=== PATIENT | female | born 2000 | race Caucasian/White ===

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

== ENCOUNTER 2022-06-13 19:27 | Emergency (ER) | payer BC, SELFPAY ==
--- NOTE | ~2022-06-13 | XR_ITS ---
EXAMINATION: XR chest 2V Exam Date/Time: 06/13/2022 20:45 CDT HISTORY: chest pain post covid Comparison: None. RESULT: Lines, tubes, and devices: None. Lungs and pleura: Clear. Cardiomediastinal silhouette: Normal. Other: No acute osseous or upper abdominal finding. Scoliosis. IMPRESSION: No acute cardiopulmonary process. Reviewed, dictated and finalized at location K.
[2022-06-13 20:12] VITALS: BP 112/92; PULSE 108; RESP 18; TEMP 36.8; O2SAT 100
--- NOTE | 2022-06-13 20:17 | ECG_ITS ---
Measurements Intervals [place] Rate: 86 P: 83 AR: 128 QRS: 80 QRSD: 84 T: 58 QT: 350 QTc: 421 Interpretive Statements SINUS RHYTHM INCOMPLETE RIGHT BUNDLE BRANCH BLOCK BORDERLINE ECG NO PREVIOUS ECG AVAILABLE FOR COMPARISON Electronically Signed On 06-14-2022 6:48:51 CDT by Yevgeniy De Paz D.O.
[2022-06-13 21:12] LABS: Basophils Absolute Auto 0.1 K/mm3 (0.0-0.1); Basophils Percent Auto 0.6 % (0.2-1.2); Eosinophils Absolute Auto 0.1 K/mm3 (0-0.3); Eosinophils Percent Auto 1.2 % (0-4.4); Hemoglobin 11.6 g/dL (12.0-15.0); Immature Granulocyte Absolute 0.02 K/mm3 (0.00-0.031); Immature Granulocyte Percent A 0.2 % (0-0.5); Lymphocytes Absolute Auto 4.08 K/mm3 (0.9-3.2); Lymphocytes Percent Auto 35.8 % (18.3-44.2); Mean Corpuscular HGB Conc 32.2 g/dl (32-36); Mean Corpuscular Hemoglobin 30.1 pg (26-34); Mean Corpuscular Volume 93.5 fl (80-100); Mean Platelet Volume 9.5 fl (7.4-10.4); Monocytes Absolute Auto 0.6 K/mm3 (0.1-0.6); Monocytes Percent Auto 5.6 % (2.6-8.5); Neutrophils Absolute Auto 6.4 K/mm3 (1.3-6.7); Neutrophils Percent Auto 56.6 % (45.5-73.1); Platelet Count Result 426 k/mm3 (150-375); Red Blood Count 3.85 M/mm3 (4.2-5.4); White Blood Count 11.4 K/mm3 (4.5-10.0)
[2022-06-13 21:23] LABS: Alanine Aminotransferase 16 U/L (6-35); Albumin Level 4.4 g/dL (3.7-5.6); Alkaline Phosphatase 63 U/L (45-116); Anion Gap 9 mmol/L (8-16); Aspartate Amino Transferase 23 U/L (14-36); Bilirubin,Total 0.2 mg/dL (0.2-1.3); Blood Urea Nitrogen 6 mg/dL (8-21); Calcium 8.9 mg/dL (8.9-10.7); Carbon Dioxide 23 mmol/L (22-30); Chloride 105 mmol/L (98-107); Estimated CRCL calculation 68 ml/min; Estimated Glomerular Filt Rate > 60; Glucose 95 mg/dL (65-110); INR 1.1; Lipase 50 U/L (23-300); Potassium 4.2 mmol/L (3.4-5.0); Prothrombin Time 13.9 Seconds (11.1-14.7); Sodium 137 mmol/L (134-143)
[2022-06-13 21:24] LABS: Partial Thromboplastin Time 26.9 SECONDS (22.3-36.8)
[2022-06-13 21:36] LABS: Troponin I < 0.012 ng/mL (0.000-0.034)
[2022-06-13 22:49] VITALS: O2SAT 100
[2022-06-13 22:50] VITALS: BP 104/73; PULSE 65; PULSE 67; RESP 13; O2SAT 100
[2022-06-13] MEDS: ASPIRIN 81 MG CHEWABLE TABLET 324 MG PO (22:52)
[2022-06-13] MEDS: Please add drug allergy info to patient profile. 1 EACH XX (22:52)
--- NOTE | 2022-06-13 23:51 | ED.CHESTPAIN ---
HPI - Chest Pain General Chief Complaint: Chest Pain <Charlette Styles PA-C - Last Filed: 06/14/22 01:41> Stated Complaint: neck pain <Charlette Styles PA-C - Last Filed: 06/14/22 01:41> Time Seen by Provider: 06/13/22 23:45 <Charlette Styles PA-C - Last Filed: 06/14/22 01:41> Source: patient <ADRIANO Barbosa Last Filed: 06/14/22 01:41> Mode of arrival: ambulatory <Charlette Styles PA-C - Last Filed: 06/14/22 01:41> Limitations: no limitations <Charlette Styles PA-C - Last Filed: 06/14/22 01:41> History of Present Illness HPI narrative: This is a 21-year-old female that presents to the emergency department for intermittent chest pains noted over the last couple of days. Reports the pain starts in her epigastrium and radiates into the chest. It is sharp in nature. She had an episode of nausea and vomiting associated with this. She has been taking ibuprofen for pain. Denies fever, cough, shortness of breath, or lower extremity edema. <Charlette Styles PA-C - Last Filed: 06/14/22 01:41> Related Data Allergies/Adverse Reactions: Allergies Allergy/AdvReac Type Severity Reaction Status Date / Time No Known Allergies Allergy Verified 06/13/22 22:51 <Charlette Styles PA-C - Last Filed: 06/14/22 01:41> Review of Systems Review of Systems: CONSTITUTIONAL: Denies fever CARDIOVASCULAR: Reports chest pain. Denies edema. RESPIRATORY: Denies cough or dyspnea. <Charlette Styles PA-C - Last Filed: 06/14/22 01:41> All systems reviewed & are unremarkable except as noted in HPI and below <Charlette Styles PA-C - Last Filed: 06/14/22 01:41> [facility] Past Medical History Medical History: Medical History (Updated 06/14/22 @ 01:40 by Charlette Styles PA-C) History of paroxysmal supraventricular tachycardia <Charlette Styles PA-C - Last Filed: 06/14/22 01:41> Social History Social History: Social History (Updated 06/13/22 @ 23:52 by Charlette Styles PA-C) Smoking status: Never smoker Substance use: never <Charlette Styles PA-C - Last Filed: 06/14/22 01:41> Exam Narrative: GENERAL: Well-appearing, well-nourished, and in no acute distress. HEAD: Normocephalic, atraumatic. EYES: EOMI. CHEST: Clear to auscultation. No respiratory distress. No wheezes rales or rhonchi HEART: Regular rate and rhythm. No murmur heard. Normal peripheral pulses. ABDOMEN: Soft, nondistended, normal active bowel sounds. Mild tenderness to palpation in the epigastrium, without guarding EXTREMITIES: Normal range of motion. No edema. SKIN: Warm, dry, no rash. NEURO: No focal deficits. Alert and oriented x3. PSYCH: Normal mood and affect <Charlette Styles PA-C - Last Filed: 06/14/22 01:41> Course Vital Signs Vital signs: Vital Signs Temperature 98.2 F 06/13/22 20:12 Pulse Rate 108 H 06/13/22 20:12 Respiratory Rate 18 06/13/22 20:12 Blood Pressure 112/92 H 06/13/22 20:12 Pulse Oximetry 100 06/13/22 20:12 Oxygen Delivery Room Air 06/13/22 20:12 Temperature 98.2 F 06/13/22 20:12 Pulse Rate 84 06/14/22 01:55 Respiratory Rate 19 06/14/22 01:55 Blood Pressure 107/72 06/14/22 01:55 Pulse Oximetry 97 06/14/22 01:55 Oxygen Delivery Room Air 06/13/22 20:12 <Charlette Styles PA-C - Last Filed: 06/14/22 01:41> Vital Signs Temperature 98.2 F 06/13/22 20:12 Pulse Rate 108 H 06/13/22 20:12 Respiratory Rate 18 06/13/22 20:12 Blood Pressure 112/92 H 06/13/22 20:12 Pulse Oximetry 100 06/13/22 20:12 Oxygen Delivery Room Air 06/13/22 20:12 Temperature 98.2 F 06/13/22 20:12 Pulse Rate 84 06/14/22 01:55 Respiratory Rate 19 06/14/22 01:55 Blood Pressure 107/72 06/14/22 01:55 Pulse Oximetry 97 06/14/22 01:55 Oxygen Delivery Room Air 06/13/22 20:12 <Ros Stevens MD - Last Filed: 06/14/22 06:07> MDM - Chest Pain MDM Narrative Medical decision making narrative: Patient presents e
[2022-06-14] MEDS: PANTOPRAZOLE SODIUM IV 40 MG VIAL IV PUSH (00:04)
[2022-06-14 00:31] LABS: Troponin I < 0.012 ng/mL (0.000-0.034)
[2022-06-14 01:55] VITALS: BP 107/72; PULSE 84; RESP 19; O2SAT 97
== END 2022-06-14 01:57 | disposition home or self-care (01) ==
PROVIDERS: Emergency Medicine; Emergency Provider General Practice; PCP Family Medicine
DX: R07.89 Other chest pain (principal); I45.10 Unspecified right bundle-branch block
CPT/HCPCS: 36415; 71046; 80053; 83690; 84484; 85025; 85610; 85730; 93005; 96365; 96375; 99284; A9270; C9113; J0131

== ENCOUNTER 2023-06-20 16:52 | Outpatient (CLI) | payer BC, SELFPAY ==
--- NOTE | ~2023-06-20 | US_ITS ---
EXAMINATION: US retroperitoneal comp DATE: 06/20/2023 18:39 INDICATION: Bilateral flank pain TECHNIQUE: Multiple ultrasound grayscale images of the kidneys were obtained. COMPARISON: None. FINDINGS: The right kidney measures 10.4 x 3.3 x 4.7 cm. The left kidney measures 10.6 x 4.4 x 5.0 cm. The kidn eys demonstrate normal echogenicity. There is no hydronephrosis in either kidney. No stones identifi ed. The bladder is normal with no significant postvoid residual bladder volume. Left-sided but no rig ht-sided ureteral jets are visualized in the bladder IMPRESSION: 1. Normal kidneys without hydronephrosis. Reviewed, dictated and finalized at location A.
== END 2023-06-20 16:53 | disposition home or self-care (01) ==
LOC: ANHIMG 16:54
PROVIDERS: PCP Family Medicine
DX: R10.9 Unspecified abdominal pain (principal)
CPT/HCPCS: 76770

== ENCOUNTER 2024-05-22 15:12 | Emergency (ER) | payer BC, SELFPAY ==
--- NOTE | 2024-05-22 15:24 | ED.URI ---
HPI - URI/Sore Throat General Chief Complaint: Upper Respiratory Infection Stated Complaint: sore throat Time Seen by Provider: 05/22/24 15:45 Source: patient and RN notes reviewed Mode of arrival: ambulatory Limitations: no limitations History of Present Illness HPI Narrative: 23-year-old female presents with concern for sore throat. Reports exposure to strep. Reports symptoms started yesterday. She denies nasal congestion, rhinorrhea, cough. Reports headache MD elicited complaint: sore throat Related Data Home Medications Medication Instructions Recorded Confirmed hydroxyzine HCl 10 mg tablet mg 05/22/24 methylphenidate HCl 5 mg tablet mg 05/22/24 propranolol 10 mg tablet mg 05/22/24 Allergies Allergy/AdvReac Type Severity Reaction Status Date / Time No Known Allergies Allergy Verified 06/13/22 22:51 Review of Systems Review of Systems: CONSTITUTIONAL: Denies malaise, chills, sweats, or fever. EYES: Denies visual changes, redness, or discharge. ENT: Denies rhinorrhea, congestion, sinus pain, otalgia. Reports sore throat. CARDIOVASCULAR: Denies chest pain, palpitations, or edema. RESPIRATORY: Denies cough. Denies dyspnea. GASTROINTESTINAL: Denies abdominal pain, nausea, vomiting, diarrhea SKIN: Denies rash or itching. MUSCULOSKELETAL: Denies myalgia. NEUROLOGIC: Reports headache. All systems reviewed & are unremarkable except as noted in HPI and below PMFSH Past Medical History Medical History (Updated 05/22/24 @ 15:54 by Darcie Shoemaker NP) History of paroxysmal supraventricular tachycardia Social History Social History (Updated 06/13/22 @ 23:52 by Charlette Styles PA-C) Smoking status: Never smoker Substance use: never Comments At time of signature, agree with nursing past medical, surgical, social and family history. There is no relevant family history pertinent to the presenting complaint Exam Narrative: GENERAL: Well-appearing, well-nourished, and in no acute distress. HEAD: Normocephalic EYES: PERRLA, conjunctivae clear ENT: Nares clear, . Mucous membranes moist. TM pearly [place] with dull light reflex bilaterally; no tragal tenderness. Oropharynx erythematous without lesions. Tonsils enlarged and without exudate, no drooling, no hoarseness, no trismus, uvula midline. NECK: Supple. No lymphadenopathy CHEST: Clear to auscultation, breath sounds equal. No wheezing, rhonchi, rales, or stridor. No respiratory distress, speaks in full sentences. HEART: Regular rate and rhythm. No murmur heard. SKIN: Warm, dry, no rash. NEURO: Alert and oriented x3. PSYCH: Normal mood and affect Course Course Emergency Course: Patient is aware of diagnosis, understands and agrees to treatment plan. Anticipatory guidance given. Patient agrees to follow-up as directed and is aware of reasons to seek care at the emergency department. Portions of this record may have been created with voice recognition software Level of Care: Express Care Visit Vital Signs Vital signs: Reviewed. MDM - URI/Sore Throat MDM Narrative Medical decision making narrative: Differential diagnosis considered: Rodriguez virus, strep pharyngitis, allergic rhinitis, upper respiratory tract infection, sinusitis, rhinosinusitis, nasopharyngitis. viral pharyngitis, otitis media, otitis externa, pneumonia, bronchitis, viral cough syndrome, viral syndrome, and influenza. Exam findings show no acute concerns or changes; patient is non-toxic appearing and is in no distress. Patient is appropriate for outpatient treatment and follow-up. Lab Data Attestation: I reviewed the patient's lab results. Critical Care Time Critical Care Time Critical Care Time: No Discharge Plan Discharge Clinical Impression: Upper respiratory infection Patient Disposition: Home, Self-Care Condition: Stable Instructions: Upper Respiratory Infection (ED) Additional Instructions: Your rapid strep swab was negative today at [facility]. A
[2024-05-22 15:26] VITALS: BP 108/80; PULSE 81; RESP 16; TEMP 36.8; O2SAT 100
[2024-05-22 15:49] LABS: EDSTREPNEGPOS1 Negative
== END 2024-05-22 16:00 | disposition home or self-care (01) ==
PROVIDERS: Emergency Provider Nurse Practitioner; PCP Family Medicine
DX: J06.9 Acute upper respiratory infection, unspecified (principal)
CPT/HCPCS: 87081; 87880; 99213; G0463

== ENCOUNTER 2024-05-25 01:47 | Emergency (ER) | payer BC, SELFPAY ==
[2024-05-25] VITALS (9 sets, daily range): BP systolic 116–129; BP diastolic 80–92; PULSE 79–100; RESP 11–35; TEMP 36.6; O2SAT 93–100
--- NOTE | ~2024-05-25 | XR_ITS ---
Portable chest x-ray Comparison: 06/13/2022 Clinical History: Cough Findings: Lungs are clear, without focal consolidation or pleural effusion. Cardiomediastinal silho uette is stable. Bones and soft tissues are unremarkable. Impression: Clear lungs. Reviewed, dictated and finalized at location . Impression: Clear lungs.
--- NOTE | 2024-05-25 02:20 | ECG_ITS ---
Test Date: 2024-05-25 02:30:54 Measurements Intervals [place] Rate: 102 P: 78 PA: 131 QRS: 74 QRSD: 87 T: 61 QT: 323 QTc: 421 Interpretive Statements SINUS TACHYCARDIA INCOMPLETE RIGHT BUNDLE BRANCH BLOCK BASELINE ARTIFACT- I, II, AVR, AVL, V1 BORDERLINE ECG No previous ECG available for comparison Electronically Signed On 05-25-2024 07:41:20 CDT by Yevgeniy De Paz D.O.
[2024-05-25] MEDS: IPRATROPIUM 0.5 MG/ALBUTEROL SULFATE 2.5 MG AMPUL.NEB 3 ML 6 ML INHALATION (02:37)
[2024-05-25 02:40] LABS: Basophils Absolute Auto 0.1 K/mm3 (0.0-0.1); Basophils Percent Auto 0.4 % (0.2-1.2); Eosinophils Absolute Auto 0.8 K/mm3 (0-0.3); Eosinophils Percent Auto 4.4 % (0-4.4); Hemoglobin 14.2 g/dL (12.0-15.0); Immature Granulocyte Absolute 0.06 K/mm3 (0.00-0.031); Immature Granulocyte Percent A 0.4 % (0-0.5); Lymphocytes Absolute Auto 2.24 K/mm3 (0.9-3.2); Lymphocytes Percent Auto 13.1 % (18.3-44.2); Mean Corpuscular HGB Conc 33.8 g/dl (32-36); Mean Corpuscular Hemoglobin 30.1 pg (26-34); Mean Platelet Volume 10.5 fl (7.4-10.4); Monocytes Absolute Auto 1.2 K/mm3 (0.1-0.6); Monocytes Percent Auto 6.7 % (2.6-8.5); Neutrophils Absolute Auto 12.8 K/mm3 (1.3-6.7); Platelet Count Result 286 k/mm3 (150-375); Red Blood Count 4.72 M/mm3 (4.2-5.4); White Blood Count 17.1 K/mm3 (4.5-10.0)
[2024-05-25] MEDS: dexAMETHasone SOD PHOS INJ 10 MG/ML 1 ML VIAL IV PUSH (02:43)
[2024-05-25] MEDS: diazePAM INJ (*CRX) 10 MG/2 ML SYRINGE 5 MG IV PUSH (02:43)
[2024-05-25] MEDS: SODIUM CHLORIDE 0.9% IV 1,000 ML 999 ML IV CONT (02:47)
[2024-05-25] MEDS: MAGNESIUM SULF 2 GM/WATER 50ML 2 GM/50 ML BAG IVPB (02:47)
[2024-05-25 02:53] LABS: Alanine Aminotransferase 12 U/L (6-35); Albumin Level 4.4 g/dL (3.5-5.1); Alkaline Phosphatase 76 U/L (38-126); Anion Gap 12 mmol/L (4-12); Aspartate Amino Transferase 24 U/L (14-36); Bilirubin,Total 0.4 mg/dL (0.2-1.3); Blood Urea Nitrogen 5 mg/dL (7-17); Calcium 9.5 mg/dL (8.4-10.2); Carbon Dioxide 23 mmol/L (22-30); Chloride 103 mmol/L (98-107); Estimated CRCL calculation 79 ml/min; Estimated Glomerular Filt Rate > 60; Glucose 116 mg/dL (65-110); Potassium 3.7 mmol/L (3.4-5.0); Sodium 138 mmol/L (137-145)
--- NOTE | 2024-05-25 03:15 | ED.GENADULT ---
HPI - General Adult General Chief complaint: Upper Respiratory Infection Stated complaint: sob Time Seen by Provider: 05/25/24 01:56 History of Present Illness HPI narrative: This is a 23-year-old female presenting ED with cough shortness of breath. Patient has been having productive cough for the last several days. She has seen in urgent care several days ago and diagnosed with viral illness. Since then her symptoms have become worse. She feels tightness in her chest since having trouble taking deep breaths. This is caused her to have significant anxiety she has health-related anxiety. Patient denies fevers, nausea vomiting diarrhea chest pain or lower extremity edema. No history of blood clots. Related Data Home Medications Medication Instructions Recorded Confirmed hydroxyzine HCl 10 mg tablet mg 05/22/24 methylphenidate HCl 5 mg tablet mg 05/22/24 propranolol 10 mg tablet mg 05/22/24 citalopram 20 mg tablet mg 05/25/24 norethindrone acetate 1 mg-ethinyl tablet 05/25/24 05/25/24 estradiol 20 mcg tablet (Junel) Allergies Allergy/AdvReac Type Severity Reaction Status Date / Time No Known Allergies Allergy Verified 06/13/22 22:51 [facility] Past Medical History Medical History Anxiety History of paroxysmal supraventricular tachycardia Social History Social History Smoking status: Never smoker Substance use: current Substance use type: marijuana Exam Narrative: APPEARANCE: anxious appearing Head: atraumatic. EYES: EOMI, NOSE: Atraumatic NECK: Trachea midline RESPIRATORY: Speaking in full sentences, scattered wheezes, not requiring supplemental oxygen CARDIOVASCULAR: RRR, no peripheral edema ABDOMINAL: Non-distended soft nontender MUSCULOSKELETAl: No obvious deformities NEURO: Alert. Moving 4/4 extremities SKIN:: Warm, dry. Normal color PSYCHIATRIC: Normal affect Course Vital Signs Vital signs: Vital Signs Temperature 98 F 05/25/24 01:50 Pulse Rate 100 05/25/24 01:50 Respiratory Rate 16 05/25/24 01:50 Blood Pressure 129/80 05/25/24 01:50 Pulse Oximetry 96 05/25/24 01:50 Oxygen Delivery Room Air 05/25/24 01:50 Temperature 98 F 05/25/24 01:50 Pulse Rate 88 05/25/24 02:57 Respiratory Rate 14 05/25/24 02:57 Blood Pressure 129/80 05/25/24 01:50 Pulse Oximetry 96 05/25/24 02:51 Oxygen Delivery Room Air 05/25/24 02:51 Medical Decision Making MDM Narrative Medical decision making narrative: -Course: 23-year-old female presenting with productive cough and chest tightness and severe anxiety. Wheezing on exam. Given breathing treatment and steroids with improvement. Given Valium for anxiety. workup significant for white count of 17. patient discharged on antibiotics to cover for pneumonia albuterol breathing treatment. Return precautions. -DDX includes but is not limited to: Viral syndrome, bronchitis, pneumonia, panic attack, PE, pneumothorax -Co-morbidities complicating care: anxiety -Independent interpretation of studies: white count 17 chest x-ray clear viral swabs negative Independent EKG interpretation: Rhythm [sinus], Rate [102], [place] -[normal], [place] -[normal], QRS [narrow], QTC [normal], T waves -[negative for concerning inversions], ST Segments - [Negative for concerning elevations] Final interpretations: [Normal Sinus Rhythm] -Interventions: dexamethasone, DuoNeb treatment, magnesium, Valium, Augmentin, doxycycline -Shared decision making / Disposition: discharge -RX Augmentin, doxycycline, albuterol Vital Signs Vital Signs: Vital Signs Temperature 98 F 05/25/24 01:50 Pulse Rate 100 05/25/24 01:50 Respiratory Rate 16 05/25/24 01:50 Blood Pressure 129/80 05/25/24 01:50 Pulse Oximetry 96 05/25/24 01:50 Oxygen Delivery Room Air 05/25/24 01:50 Temperature 98 F 05/25/24 01:50 Puls
[2024-05-25 03:16] LABS: Influenza A QL RT-PCR Negative (Negative); Influenza B QL RT-PCR Negative (Negative); RSV RNA, RT-PCR Negative (Negative); SARS-CoV-2 RNA PCR Negative (Negative)
[2024-05-25] MEDS: DOXYCYCLINE HYCLATE 100 MG TABLET PO (03:40)
[2024-05-25] MEDS: AMOXICILLIN/CLAVULANATE K 875-125 MG TAB 1 TABLET PO (03:40)
== END 2024-05-25 03:47 | disposition home or self-care (01) ==
LOC: ANHED 03:23
PROVIDERS: Emergency Provider Emergency Medicine; PCP Family Medicine
DX: J18.9 Pneumonia, unspecified organism (principal); J45.909 Unspecified asthma, uncomplicated; F41.9 Anxiety disorder, unspecified; Z20.822 Contact with and (suspected) exposure to COVID-19; Z79.899 Other long term (current) drug therapy; R00.0 Tachycardia, unspecified; I45.10 Unspecified right bundle-branch block
CPT/HCPCS: 36415; 71045; 80053; 85025; 87637; 93005; 94640; 96365; 96375; 99284; A9270; J1100; J3360; J3475; J7030

== ENCOUNTER 2024-11-29 13:28 | Emergency (ER) | payer BC, SELFPAY ==
--- NOTE | 2024-11-29 13:38 | ED.GENADULT ---
HPI - General Adult General Chief complaint: Skin/Abscess/Foreign Body Stated complaint: rash all over Time Seen by Provider: 11/29/24 13:38 Source: patient Mode of arrival: ambulatory Limitations: no limitations History of Present Illness HPI narrative: 24-year-old female patient presents to the [facility] with complaints of a rash to the bilateral elbows, bilateral hips and bilateral knees. Patient states that the rash started on her elbows yesterday and was itchy. Patient states woke up today and noticed that it spread to bilateral hips and bilateral knees. Patient denies any fevers, body aches or chills. Denies any pain to the area. Denies any medical history such as an autoimmune disorder. Patient denies taking anything for the rash. Denies any new soaps lotions or detergents. Related Data Home Medications ?Medication ?Instructions ?Recorded ?Confirmed ?Last Taken ?Type propranolol 10 mg tablet mg 05/22/24 Unknown History norethindrone acetate 1 mg-ethinyl tablet 05/25/24 05/25/24 Unknown History estradiol 20 mcg tablet (Junel) bupropion HCl 75 mg tablet mg PO 11/29/24 Unknown History escitalopram oxalate 20 mg tablet mg 11/29/24 Unknown History Allergies Allergy/AdvReac Type Severity Reaction Status Date / Time No Known Allergies Allergy Verified 11/29/24 13:45 Review of Systems Review of Systems: CONSTITUTIONAL: Denies fever, chills, or sweats. EYES: Denies visual changes, redness, or discharge. ENT: Denies rhinorrhea, congestion, sore throat, or otalgia. CARDIOVASCULAR: Denies chest pain, palpitations, or edema. RESPIRATORY: Denies cough or dyspnea. GASTROINTESTINAL: Denies abdominal pain, nausea, vomiting, or diarrhea. GENITOURINARY: Denies dysuria or hematuria. SKIN: Positive rash with itching. MUSCULOSKELETAL: Denies back pain, joint pain, or myalgia. NEUROLOGIC: Denies headache, numbness, or weakness. PSYCHIATRIC: Denies anxiety or depression. [facility] Past Medical History Medical History Anxiety History of paroxysmal supraventricular tachycardia Social History Social History Smoking status: Never smoker Substance use: current Substance use type: marijuana Comments At the time of my signature I agree with nursing past medical history, surgical, social, and family history. There is no relevant family history pertinent to the presenting complaint. Exam Narrative: GENERAL: Well-appearing, well-nourished, and in no acute distress. HEAD: Normocephalic, atraumatic. EYES: PERRLA and EOMI. ENT: Nares clear, no rhinorrhea or epistaxis. Mucous membranes moist. NECK: Supple. No lymphadenopathy CHEST: Clear to auscultation. No respiratory distress. HEART: Regular rate and rhythm. No murmur heard. Normal peripheral pulses. ABDOMEN: Soft, nontender, nondistended, normal active bowel sounds. EXTREMITIES: Normal range of motion. No edema. SKIN: Warm, dry, patient has a large slightly elevated erythemic rash noted to bilateral posterior elbows, anterior knees, and bilateral hip area. The rash has well-defined markers and does appear blotchy. No open wounds or discharge present. No blisters noted NEURO: No focal deficits. Alert and oriented x3. Course Course Level of Care: Express Care Visit Vital Signs Vital signs: Vital Signs Temperature 36.9 C 11/29/24 13:46 Pulse Rate 85 11/29/24 13:46 Respiratory Rate 16 11/29/24 13:46 Blood Pressure 102/65 11/29/24 13:46 Pulse Oximetry 100 11/29/24 13:46 Temperature 36.9 C 11/29/24 13:46 Pulse Rate 85 11/29/24 13:46 Respiratory Rate 16 11/29/24 13:46 Blood Pressure 102/65 11/29/24 13:46 Pulse Oximetry 100 11/29/24 13:46 Vital signs reviewed. Medical Decision Making MDM Narrative Medical decision making narrative: plan care patient is to discharge home with some oral steroids. Discussed with her that the fact that her rash is only on joint areas is a little concerning for an underlying issue. Highly recommend that patient follow-up with primary doctor for blood work to rule out any kind of autoimmune disorders. Discussed with patient if her symptoms worsen then she would need to go to the ER for further evaluation treatment. Differential Diagnosis Differential Diagnosis: Differential diagnosis: Contact dermatitis, poison beryl, poison sumac, psoriasis, eczema, allergic reaction, drug reaction, scabies, tinea syphilis, lung disease, viral exanthema, pityriasis, erythema multiforme. Vital Signs Vital Signs: Vital Signs Temperature 36.9 C 11/29/24 13:46 Pulse Rate 85 11/29/24 13:46 Respiratory Rate 16 11/29/24 13:46 Blood Pressure 102/65 11/29/24 13:46 Pulse Oximetry 100 11/29/24 13:46 Temperature 36.9 C 11/29/24 13:46 Pulse Rate 85 11/29/24 13:46 Respiratory Rate 16 11/29/24 13:46 Blood Pressure 102/65 11/29/24 13:46 Pulse Oximetry 100 11/29/24 13:46 Critical Care Time Critical Care Time Critical Care Time: No Discharge Plan Discharge Clinical Impression: Rash and nonspecific skin eruption Patient Disposition: Home, Self-Care Condition: Stable Instructions: Antibiotic Form, Urticaria (ED) Additional Instructions: Wash the area with soap and cool water only. Use skin creams/lotion or anti-itch medicine to reduce itchiness Avoid scratching when possible to prevent worsening of the condition and disruption of the skin that could lead to bacterial infection To relieve itching, place a cool washcloth or some ice over the area that itches, rather than scratching Follow up with primary care provider or seek ER if you have trouble breathing, become hoarse, or start wheezing, develop belly cramps, vomiting or feel dizzy. Patient Language: [place] Prescriptions: New prednisone 10 mg tablets,dose pack See Rx Instructions .ROUTE .COMPLEX Qty: 48 0RF Rx Instructions: 50 mg x 3 days, 40 mg x 3 days, 30 mg x 3 days, 20 mg x 3 days, 10 mg x 3 days No Action bupropion HCl 75 mg tablet PO escitalopram oxalate 20 mg tablet propranolol 10 mg tablet norethindrone ac-eth estradiol [10/12 (21)] 1-20 mg-mcg tablet Follow-up/Referrals: Tony Mata M.D. [Primary Care Provider] - Time of Disposition: 14:06
[2024-11-29 13:46] VITALS: BP 102/65; PULSE 85; RESP 16; TEMP 36.9; O2SAT 100
== END 2024-11-29 14:09 | disposition home or self-care (01) ==
PROVIDERS: Emergency Provider Nurse Practitioner Family; PCP Family Medicine
DX: R21 Rash and other nonspecific skin eruption (principal)
CPT/HCPCS: 99213; G0463

== ENCOUNTER 2025-09-19 10:40 | Emergency (ER) | payer BC, SELFPAY ==
--- NOTE | 2025-09-19 11:10 | ED.URI ---
HPI - URI/Sore Throat General Chief Complaint: Upper Respiratory Infection Stated Complaint: sore throat, body aches Time Seen by Provider: 09/19/25 11:20 Source: patient Mode of arrival: ambulatory Limitations: no limitations History of Present Illness HPI Narrative: David is a 24-year-old female patient presenting to the clinic today with complaints of sore throat body aches x2 days. She says she has had exposure to COVID. Tested for COVID this morning and was negative. Is concerned for strep throat. MD elicited complaint: sore throat and nasal congestion Related Data Home Medications ?Medication ?Instructions ?Recorded ?Confirmed ?Last Taken ?Type propranolol 10 mg tablet mg 05/22/24 Unknown History norethindrone acetate 1 mg-ethinyl tablet 05/25/24 05/25/24 Unknown History estradiol 20 mcg tablet (Junel) bupropion HCl 75 mg tablet mg PO 11/29/24 Unknown History escitalopram oxalate 20 mg tablet mg 11/29/24 Unknown History aripiprazole 5 mg tablet mg 09/19/25 Unknown History Allergies Allergy/AdvReac Type Severity Reaction Status Date / Time No Known Allergies Allergy Verified 11/29/24 13:45 Review of Systems Review of Systems: Pertinent positives per HPI. Patient denies any fever, chills, rash, headache, visual changes, dizziness, cough, shortness of breath, chest pain, palpitations, nausea, vomiting, diarrhea, constipation, abdominal pain, or any urinary issues. PMFSH Past Medical History Medical History Anxiety History of paroxysmal supraventricular tachycardia Social History Social History Smoking status: Never smoker Substance use: current Substance use type: marijuana Comments At the time of my signature, I reviewed and agree with the nursing past medical, surgical, social, and family history. There is no relevant family history pertinent to the patient complaint. Exam Narrative: General: Well-developed, well nourished, in no apparent distress Head: Normocephalic, atraumatic Eyes: Pupils equally round and reactive to light bilaterally, EOM intact, sclera and conjunctive clear, no discharge, lids normal Ears: TMs intact and clear, ear canals clear, no drainage, grossly hearing normal. Nose: Nares patent, no discharge, no inflammation, no sinus tenderness. Mouth: Oral pharynx red without lesions or masses, good dentition, MMM. Neck: Supple, trachea midline, no enlargement of anterior or posterior cervical nodes, no thyroid masses or goiter palpable. Cardio: Regular rate and rhythm, s1 and s2 normal, no murmur appreciated. Resp: Clear to auscultation bilaterally, no rhonchi, rales, wheezing or rubs Course Course Level of Care: Express Care Visit Vital Signs Vital signs: Vital Signs Temperature 37.3 C 09/19/25 11:11 Pulse Rate 94 09/19/25 11:11 Respiratory Rate 16 09/19/25 11:11 Blood Pressure 113/76 09/19/25 11:11 Pulse Oximetry 100 09/19/25 11:11 Temperature 37.3 C 09/19/25 11:11 Pulse Rate 94 09/19/25 11:11 Respiratory Rate 16 09/19/25 11:11 Blood Pressure 113/76 09/19/25 11:11 Pulse Oximetry 100 09/19/25 11:11 MDM MDM Narrative Medical decision making narrative: At the time of visit patient is resting comfortably on the exam table. Patient appears to be nontoxic. Complaints of sore throat body aches x2 days. She says she has had exposure to COVID. Tested for COVID this morning and was negative. Is concerned for strep throat. On exam patient has TMs intact and clear, no nasal drainage, no anterior turbinate inflammation, oral pharynx mildly red without tonsillar enlargement, no cervical lymphadenopathy, heart rates regular rate and rhythm, lung sounds are clear. Plan: I suspect patient has pharyngitis. She test herself for COVID this morning and was negative. Work note was given. Supportive measures were discussed with the patient and they voiced understanding discharge instructions and agrees to treatment plan. Return precautions reviewed Differential Diagnosis Differential Diagnosis: Differential diagnostic considerations for upper respiratory infection include upper respiratory infection, croup, otitis media, sinusitis, viral infection, bronchitis, influenza, pharyngitis, strep, uvulitis. Lab Data Labs: Lab Results 09/19/25 Range/Units 11:40 POC Grp A Strep Screen Negative (Negative) Discharge Plan Discharge Clinical Impression: Pharyngitis Qualifiers: Pharyngitis/tonsillitis etiology: unspecified etiology Qualified Code(s): J02.9 - Acute pharyngitis, unspecified Patient Disposition: Home Condition: Stable Instructions: Antibiotic Form, Pharyngitis (ED) Additional Instructions: Strep test was negative in the clinic today. We will send strep for culture and if this comes back positive we will contact him place you on antibiotics at that time. Increase fluids and stay well hydrated May take Tylenol or motrin as directed on bottle for pain/fever May use Flonase 1 spray in each nare daily May take OTC antihistamines such as Zyrtec or Claritin daily as directed on bottle May apply Vicks vapor rub to chest to open sinuses Sinus rinses for congestion Cepacol spray, cough drops, throat lozenges, warm tea with honey/lemon, gargle salt water to soothe throat BRAT diet for diarrhea Clear liquids x 24 hours then advance as tolerated for nausea/vomiting Go to the ED if you develop a worsening in your condition- high fever not controlled by Tylenol or Motrin, dehydration, weakness, lethargy, shortness of breath, or chest pain. Follow up with your PCP in 3-5 days if symptoms persist. Patient Language: [place] Prescriptions: No Action bupropion HCl 75 mg tablet PO escitalopram oxalate 20 mg tablet aripiprazole 5 mg tablet propranolol 10 mg tablet norethindrone ac-eth estradiol [10/12 (21)] 1-20 mg-mcg tablet Follow-up/Referrals: PHYSICIAN,REGIONAL ACCOUNT MANAGER [Primary Care Provider, Internal Medicine] Stand Alone Forms: Work/School Release IP Time of Disposition: 11:34 Quality NIHSS Nursing Documentation ED NIHSS nursing documentation: reviewed/agree
[2025-09-19 11:11] VITALS: BP 113/76; PULSE 94; RESP 16; TEMP 37.3; O2SAT 100
[2025-09-19 11:44] LABS: EDSTREPNEGPOS1 Negative (Negative)
== END 2025-09-19 11:44 | disposition home or self-care (01) ==
PROVIDERS: Emergency Provider Nurse Practitioner Family
DX: J02.9 Acute pharyngitis, unspecified (principal)
CPT/HCPCS: 87081; 87880; 99213; G0463